=== PATIENT | female | born 1990 | race Caucasian/White ===

== ENCOUNTER 2021-12-10 14:21 | Emergency (ER) | payer OTHER ==
[~2021-12-10] VITALS: Ht 165.1 cm; Wt 117.9 kg
[2021-12-10] MEDS ORDERED: HYDROCODON-ACE1 EAC7 PO (15:49)
[2021-12-10] MEDS ORDERED: IBUPROFEN 800800 M1 PO (15:49)
[2021-12-10] MEDS ORDERED: FLEXERIL PO (15:49)
[2021-12-10 15:57] VITALS: BP 183/101
== END 2021-12-10 15:58 | disposition home or self-care (01) ==
LOC: M.ERS 14:21
DX: M54.50 Low back pain, unspecified (principal); W20.8XXA Other cause of strike by thrown, projected or falling object, initial encounter; Y93.89 Activity, other specified; Y92.512 Supermarket, store or market as the place of occurrence of the external cause; Y99.8 Other external cause status